=== PATIENT | male | born 1960 | race Caucasian/White ===

== ENCOUNTER 2016-03-15 13:18 | Outpatient (CLI) | payer BC | END 2016-03-15 23:59 | disposition home or self-care (01) | LOC: WOU 13:18 | PROVIDERS: ATTEND Surgery | DX: Z48.02 Encounter for removal of sutures (principal); L90.5 Scar conditions and fibrosis of skin; Z85.828 Personal history of other malignant neoplasm of skin | CPT/HCPCS: 99205; A6402; G0463 ==